=== PATIENT | female | born 1995 | race Caucasian/White ===

== ENCOUNTER 2017-07-28 18:35 | Emergency (ER) | payer OTHER ==
--- NOTE | 2017-07-28 19:29 | PDOC ---
History of Present Illness - General History Source: Patient Exam Limitations: No Limitations - History of Present Illness Initial Comments: 07/28/17 20:39 The patient is a 22 year old female with no significant PMH who presents to the emergency department with a right knee injury yesterday . The patient reports that she slipped and fell on her floor at home while playing with her sister and accidently smashed into a wood door frame. The patient reports that she has taken no medication for her knee injury. She reports that the swelling and bruising are more apparent today. The patient denies any other complaints. She denies any headache or dizziness. The patient denies any nausea or vomiting. PAST MEDICAL HISTORY: no significant history PAST SURGICAL HISTORY: no significant history FAMILY HISTORY: no pertinent history SOCIAL HISTORY: none reported MEDICATIONS: reviewed ALLERGIES: As per nursing notes General: No fevers or chills, no weakness, no weight loss HEENT: No change in vision. No sore throat,. No ear pain CardioVascular: No chest pain or shortness of breath Respiratory:No cough, or wheezing. Gastrointestinal: no nausea, vomiting, diarrhea or constipation, No rectal bleeding Genitourinary: No dysuria, hematuria, or frequency Musculoskeletal: (+) right knee injury. Neurologic: No headache, vertigo, dizziness or loss of consciousness Psychiatric: nor depression Skin: No rashes or easy bruising Endocrine: no increased thirst or abnormal weight change Allergic: no skin or latex allergy All other systems reviewed and normal GENERAL: The patient is awake, alert, and fully oriented, in no acute distress. HEAD: Normal with no signs of trauma. EYES: Pupils equal, round and reactive to light, extraocular movements intact, sclera anicteric, conjunctiva clear. EXTREMITIES: (+) left knee ecchymosis and swelling. Tenderness on palpation to patella. . 2 abrasions to anterior knee. Vascular distals intact. NEUROLOGICAL: Normal speech, normal gait. PSYCH: Normal mood, normal affect. SKIN: Warm, Dry, normal turgor, no rashes or lesions noted. <Anabela Silva - Last Filed: 07/28/17 20:39> - General History Source: Patient Exam Limitations: No Limitations - History of Present Illness Initial Comments: 07/28/17 21:12 A portion of this note was documented by scribe services under my direction. I have reviewed the details of the note, within reason, and agree with the documentation. The case summary and management plan written by me. Assessment and plan: This is a 22-year-old female who comes in complaining of left knee leg pain post injuring her left knee when she slammed into a door jamb earlier in the day. Patient has been ambulating with difficulty and pain. Patient otherwise denies any other injuries. X-ray: Nondisplaced fracture proximal fibula Procedure note OCL splint posterior left leg from mid thigh to toes applied patient tolerated well neurovascular post splint application intact Patient discharged home with crutches told to be no weightbearing and follow-up with an orthopedist this week. <Brandon Gregorio I - Last Filed: 07/28/17 21:16> - General Chief Complaint: Injury Stated Complaint: FALL/LEFT KNEE INJURY Time Seen by Provider: 07/28/17 19:28 Past History <Anabela Silva - Last Filed: 07/28/17 20:39> - Suicide/Smoking/Psychosocial Hx Smoking Status: No Smoking History: Never smoked Number of Cigarettes Smoked Daily: 0 <Brandon Gregorio I - Last Filed: 07/28/17 21:16> - Past Medical History Allergies/Adverse Reactions: Allergies Allergy/AdvReac Type Severity Reaction Status Date / Time No Known Allergies Allergy Verified 07/28/17 19:25 Home Medications: Ambulatory Orders Norethindrone-E.estradiol-Iron [Microgestin Fe 1-20 Tablet] 1 each PO ASDIR tablet 02/05/14 *Physical Exam - Vital Signs Last Vital Signs Temp Pulse Resp BP Pulse Ox 98.6 F 79 18 128/77 100 07/28/17 19:25 07/28/17 19:25 07/28/17 19:25 07/28/17 19:25 07/28/17 19:25 <Anabela Silva - Last Filed: 07/28/17 20:39> ED Treatment Course - ADDITIONAL ORDERS Additional order review: Laboratory Results 07/28/17 20:05 Urine HCG, Qual Negative <Anabela Silva - Last Filed: 07/28/17 20:39> *DC/Admit/Observation/Transfer - Attestations Scribe Attestion: 07/28/17 20:39 Documentation prepared by Anabela Silva, acting as expert medical writer for Brandon Gregorio MD. <Anabela Silva - Last Filed: 07/28/17 20:39> - Discharge Dispostion Admit: No <Brandon Gregorio I - Last Filed: 07/28/17 21:16> Diagnosis at time of Disposition: Closed left fibular fracture - Discharge Dispostion Disposition: LEFT BEFORE MED EVAL, [facility] Condition at time of disposition: Stable - Patient Instructions Additional Instructions: Wear the splint and use your crutches no weight bearing until you are seen by the orthopedist. If you need an orthopedist call Dr. Robertson at [phone] Tylenol or Motrin as needed for pain. Return to the emergency department immediately with ANY new, persistent or worsening symptoms. Continue any medications as previously prescribed by your physician. You should follow up with your primary doctor as soon as possible regarding today's emergency department visit. . Please make sure your doctor reviews the results of your emergency evaluation. Thank you for coming to the Emergency Department today for your care. It was a pleasure to see you today. Please note that your evaluation is INCOMPLETE until you follow-up with your doctor.
[2017-07-28 19:37] VITALS: BP 128/77; PULSE 79; TEMP 98.6; BMI 27.0
[2017-07-28] MEDS ORDERED: IBUPROFEN 600 MG TABLET (FP) PO ONE (21:20)
== END 2017-07-28 21:37 | disposition home or self-care (01) ==
LOC: FER 18:35
PROC: 2W3QX1Z Immobilization of Right Lower Leg using Splint (ICD-10-PCS; principal; 2017-07-28)
DX: S82.402A Unspecified fracture of shaft of left fibula, initial encounter for closed fracture (principal); X58.XXXA Exposure to other specified factors, initial encounter; Y93.89 Activity, other specified; Y92.9 Unspecified place or not applicable
CPT/HCPCS: 73562-TC-LT-FY; 84703; 99283-25

== ENCOUNTER 2020-06-17 14:32 | Emergency (ER) | payer SELFPAY | END 2020-06-17 15:25 | disposition home or self-care (01) | LOC: JVIRT 14:32 | DX: Z11.52 Encounter for screening for COVID-19 (principal) | CPT/HCPCS: C9803; G2251-GT; U0003 ==